=== PATIENT | female | born 1950 | race Caucasian/White ===

== ENCOUNTER 2021-01-13 09:44 | Emergency (ER) | payer MEDICARE, BC, SELFPAY ==
[2021-01-13 09:45] VITALS: BP 151/86; PULSE 71; RESP 16; TEMP 36.7; O2SAT 97; BMI 29.0
--- NOTE | 2021-01-13 10:10 | EKG12_ITS ---
Test Reason : SOB Blood Pressure : / mmHG Vent. Rate : 061 BPM Atrial Rate : 061 BPM P-R Int : 178 ms QRS Dur : 092 ms QT Int : 452 ms P-R-T Axes : 021 014 -14 degrees QTc Int : 455 ms Normal sinus rhythm Nonspecific T wave abnormality Abnormal ECG Confirmed by PETERSON SMITH, AYAZ ([id number]), newspaper or periodical editor LASHELL SAMPSON ([id number]) on 01/16/2021 10:03:35 AM Referred By: GISSELLE Confirmed By:AYAZ WINKLER MD
--- NOTE | 2021-01-13 10:10 | EDS_ITS ---
HPI History of Present Illness Chief Complaint: Abd Pain Informant: patient Onset/Context/Timing Onset: Today Context: Gradual Onset Current Severity: Mild Maximum Severity: Severe Narrative Narrative: Patient present secondary to abdominal pain. She states that approximately 30 minutes ago she developed pain across her mid upper abdomen mary t radiated around both sides. She felt like her right upper quadrant was swollen. She reported feeling very hot and short of breath. She was nauseated but did not vomit. On arrival to the emergency room symptoms seem to have improved. Patient denies any prior similar episodes. She denies any prior abdominal surgeries. [facility] Medical History Cardiomyopathy Hypertension Hypothyroidism Home Medications Unobtainable 01/13/21 [History Last Taken Unknown] Allergy/AdvReac Type Severity Reaction Status Date / Time No Known Allergies Allergy Verified 01/13/21 09:47 Social History Smoking Status: Current every day smoker tobacco type: e-cigarettes ROS ROS ED Constitutional Constitutional ED: Denies chills or fever(s) Eyes Eyes: Denies change in vision ENT ENT ED: Denies sore throat Cardiovascular Cardiovascular: Denies chest pain Respiratory/Chest Respiratory/Chest: Denies cough or dyspnea Gastrointestinal Gastrointestinal: Reports abdominal pain and nausea; Denies diarrhea or vomiting Genitourinary Genitourinary ED: Denies dysuria Musculoskeletal Musculoskeletal: Denies back pain Integumentary Denies rash Neurologic Neurologic: Denies headache(s) or weakness Allergic/Immunologic Allergic/Immunologic ED: Denies urticaria EXAM Physical Exam Const Vital Signs: 01/13/21 09:45 01/13/21 12:41 Temperature 98.1 F Temperature Source Temporal Pulse Rate 71 52 L Respiratory Rate 16 12 Blood Pressure 151/86 H 155/85 H Blood Pressure Mean 107 108 Pulse Ox 97 97 Oxygen Delivery Method Room Air Room Air Positive well nourished and well developed General Appearance ED: well developed HEENT Reports normocephalic and head/scalp atraumatic Eyes PERRL and EOMs intact bilaterally Neck supple Chest Wall inspection of chest normal and palpation of chest normal Resp normal respiratory effort and clear to auscultation bilaterally Cardio regular rate and regular rhythm GI Auscultation: hypoactive bowel sounds Palpation: soft and tender May's sign and other (Mild diffuse tenderness to palpation.); Negative for guarding or rebound tenderness present Extremity normal to inspection Neuro oriented x3 and no sensory deficits noted Sensorium / Orientation: alert Motor Exam: strength 5/5 throughout Psych mental status grossly normal Skin no rashes or lesions noted MDM MDM MDM Narrative Medical decision making narrative: Patient states pain significantly improved with time examined did not require anything for pain while here. Lab work, CT flank, EKG obtained. Lab Data Attestation: I reviewed the patient's lab results. Labs: Laboratory Results - last 24 hr 01/13/21 01/13/21 01/13/21 10:55 10:55 12:08 WBC 6.9 RBC 4.57 Hgb 13.6 Hct 39.6 MCV 86.7 MCH 29.8 MCHC 34.3 RDW Std Deviation 39.1 RDW Coeff of Arcenio 12.4 Plt Count 239 MPV 10.9 Immature Gran % (Auto) 0.300 Neut % (Auto) 60.3 Lymph % (Auto) 23.3 [place] % (Auto) 8.2 Eos % (Auto) 6.7 H Baso % (Auto) 1.2 H Absolute Neuts (auto) 4.2 Absolute Lymphs (auto) 1.61 Nucleated RBC % 0 Sodium 137 Potassium 4.1 Chloride 104 Carbon Dioxide 26.0 Anion Gap 7 BUN 9 Creatinine 0.65 Estim Creat Clear Calc 48.30 Est GFR (MDRD) Af Amer 116 Est GFR (MDRD) Non-Af 96 BUN/Creatinine Ratio 13.9 Glucose 116 H Calcium 9.0 Total Bilirubin 0.30 Direct Bilirubin 0.08 AST 27 ALT 26 Alkaline Phosphatase 115 Total Protein 7.7 Albumin 3.7 Globulin 4.0 Lipase 247 Urine Color Straw Urine Clarity Clear Urine pH 6.5 Ur Specific [place] 1.010 Urine Protein Negative Urine Glucose (UA) Normal Urine Ketones Negative Urine Occult Blood Negative Urine Nitrite Negative Urine Bilirubin Negative Urine Urobilinogen Normal Ur Leukocyte Esterase 25 H Urine RBC 0 SEEN Urine WBC 0-5 SEEN Ur Squamous Epith Cells 0-5 SEEN Urine Bacteria RARE Urine Mucus 0 SEEN Radiography Diagnostic Testing: Radiology Impression Abdomen/Pelvis CT 01/13/21 10:10 IMPRESSION: Mild degree of right hydronephrosis and right hydroureter. I suspect a 2 mm calculus in the distal portion of the right ureter. Electronically Signed: Luis Fernando Joyner MD at 11:29 EDT , Service support , EKG Initial EKG: Attestation: I personally reviewed and interpreted this EKG as follows: Interpretation: Sinus Rhythm (Sinus at [address] change.) Treatment and Re-Evaluation Comments:: On repeat evaluation patient resting comfortably. CT scan reveals mild right hydro with a 2 mm distal stone. Urinalysis reveals no sign of acute infection. Test results discussed with patient and family at bedside. Will be referred to urology for follow-up as needed. I suspect she will pass the stone without difficulty. Discharge Plan Triage Chief Complaint: Abd Pain ED Provider: Jovana Campbell Dx/Rx/DC Orders Clinical Impression: Kidney stone Instructions: ED Kidney Stone w/ Colic Prescriptions: No Action Unobtainable RF: 0 Referrals: GEETA VIEIRA [Other] Archie Johns MD [STAFF PHYSICIAN] - As Needed
--- NOTE | 2021-01-13 10:10 | CT_ITS ---
STUDY: CT ABDOMEN AND PELVIS WITHOUT CONTRAST REASON FOR EXAM: Female, 70 years old. Diffuse abdominal pain with radiation to the lower back. RADIATION DOSAGE (If Supplied By Facility): CTDIvol = ( 15.96 ) mGy, DLP = ( 805.31 ) mGycm TECHNIQUE: Transaxial images were obtained from the dome of the diaphragm to the symphysis pubis without oral contrast, and without intravenous contrast. Sagittal and coronal images were reconstructed. Individualized dose optimization techniques were used for this CT. COMPARISON: None. FINDINGS: Minimal increased markings at the lung bases suggestive of mild linear scarring and/or atelectasis. Coronary artery calcification. Normal liver. Normal gallbladder and extrahepatic biliary system. Normal spleen. Normal pancreas. Normal bilateral adrenal glands. There is a mild degree of right hydronephrosis and right hydroureter down to its distal portion. A suspected 2 mm calculus in the distal portion of the right ureter. Normal left kidney. There is a small hiatal hernia. Normal small intestine. Normal colon. The appendix is visualized and appears normal. There is diffuse atherosclerotic calcification of the abdominal aorta, without a demonstrated aneurysm. Normal inferior vena cava. Normal retroperitoneum. Normal urinary bladder. There is a small umbilical hernia containing fat. Small bilateral inguinal hernias containing fat. There are degenerative changes of the visualized lumbar spine. CT/Abdomen/Pelvis without Cont IMPRESSION: Mild degree of right hydronephrosis and right hydroureter. I suspect a 2 mm calculus in the distal portion of the right ureter. Electronically Signed: Luis Fernando Joyner MD at 11:29 EDT , Service support ,
[2021-01-13 11:04] LABS: Absolute Lymphocyte Count 1.61 X10^3/uL (0.83-4.51); Absolute Neutrophil Count 4.2 X10^3/uL (2.0-7.7); Basophil# 0.08 X10^3/uL; Basophil% 1.2 % (0-1); Eosinophil# 0.46 X10^3/uL; Eosinophils% 6.7 % (0-5); Hematocrit 39.6 % (37-47); Hemoglobin 13.6 g/dL (12.0-15.0); Lymphocyte # 1.61 X10^3/ul (0.83-4.51); Lymphocyte % 23.3 % (19-41); Mean Corp Hgb Conc 34.3 g/dL (32-36); Mean Corpuscular Hgb 29.8 pg (27.0-32.0); Mean Corpuscular Volume 86.7 fL (81-99); Mean Platelet Vol. 10.9 fl (6.2-12.0); Monocyte# 0.57 X10^3/uL; Monocyte% 8.2 % (0-10); NRBC Flagged by Analyzer 0 % (0-5); Neutrophil # 4.17 X10^3/uL (2.7-7.7); Neutrophil % 60.3 % (47-70); Platelet Count 239 K/mm3 (150-450); RBC Distribution Width CV 12.4 % (11.6-14.6); RBC Distribution Width SD 39.1 fl (35.1-43.9); Red Blood Count 4.57 M/mm3 (4.2-5.4); White Blood Count 6.9 K/mm3 (4.4-11.0)
[2021-01-13 11:21] LABS: AST(SGOT) 27 U/L (15-37); Alanine Aminotransfer ALT/SGPT 26 U/L (13-56); Albumin, Serum 3.7 g/dL (3.2-5.0); Alkaline Phosphatase 115 U/L (45-117); Anion Gap 7 (5-15); BUN 9 mg/dL (7-18); BUN/Creat Ratio 13.9 RATIO (10-20); Bilirubin, Direct 0.08 mg/dL (0.00-0.30); Chloride 104 mmol/L (98-107); Creatinine, Serum 0.65 mg/dL (0.55-1.02); EST Glomerular Filtration Rate 96 mL/min (>60); Est Glom Filt Rate - Afr Amer 116 mL/min (>60); Glucose 116 mg/dL (74-106); Lipase 247 U/L (73-393); Potassium 4.1 mmol/L (3.5-5.1); Protein, Total 7.7 g/dL (6.4-8.2); Sodium Level 137 mmol/L (136-145)
[2021-01-13 12:13] LABS: Mucous, Urine 0 SEEN /hpf (<or=2+); Red Blood Cells-Urine 0 SEEN /hpf (0-5)
[2021-01-13 12:15] LABS: Color, Urine Straw (Yellow); Glucose, Dipstick Normal (Normal); Ketone-Dipstick Negative (Negative); Leukocyte Esterase-Dipstick 25 /ul (Negative); Nitrite-Dipstick Negative (Negative); Occult Blood-Urine Negative /ul (Negative); Protein-Dipstick Negative (Negative); Urine Bilirubin Dipstick Negative (Negative); Urine Clarity Clear (Clear); Urine Urobilinogen Normal (Normal); Urine pH 6.5 (5.0 - 8.0)
[2021-01-13 12:26] LABS: Bacteria RARE /hpf (None Seen); Squamous Epithelial Cells - UA 0-5 SEEN /hpf (5-10); White Blood Cells 0-5 SEEN /hpf (0-5)
[2021-01-13 12:41] VITALS: BP 155/85; PULSE 52; RESP 12; O2SAT 97
== END 2021-01-13 12:56 | disposition home or self-care (01) ==
LOC: ED 11:58
PROVIDERS: Emergency Provider Emergency Medicine
DX: N20.0 Calculus of kidney (principal)
CPT/HCPCS: 74176; 80048; 80076; 81001; 83690; 85025; 93005; 99284; A4216

== ENCOUNTER 2021-10-23 13:01 | Emergency (ER) | payer MEDICARE, BC, SELFPAY ==
[2021-10-23 13:03] VITALS: BP 159/90; PULSE 73; RESP 16; TEMP 36.3; O2SAT 100; BMI 32.5
--- NOTE | 2021-10-23 13:41 | RAD_ITS ---
STUDY: X-RAY - LEFT FOOT CLINICAL: Female, 70 years old. Pain/injury TECHNIQUE: 3 view(s) of the foot. COMPARISON: None. FINDINGS: Normal talus, calcaneus, and tarsal bones. Normal visualized subtalar, talonavicular, calcaneocuboid, tarsal and tarsometatarsal articulations. Normal metatarsi. Normal metatarsophalangeal joint of the great toe. Normal tibial and fibular sesamoid bones. Normal interphalangeal joint of the great toe. Normal phalanges of the great toe. Normal second through fifth metatarsophalangeal joints. Normal interphalangeal joints and phalanges of the lesser toes. The soft tissue structures are unremarkable. RAD/Foot min 3 Views IMPRESSION: Normal x-ray examination of the foot. Electronically Signed: Luis Fernando Joyner MD at 14:17 EDT ,
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
[2021-10-23] MEDS: Ibuprofen 600 MG Tablet PO (13:49)
--- NOTE | 2021-10-23 13:54 | RAD_ITS ---
STUDY: X-RAY - LEFT ANKLE REASON FOR EXAM: Female, 70 years old. Pain and swelling following injury. TECHNIQUE: 3 view(s) of the ankle. COMPARISON: None. FINDINGS: Normal visualized distal tibia and fibula. Normal medial and lateral malleoli. Normal tibiotalar articulation and ankle mortise. Normal visualized talus and calcaneus. The visualized subtalar, talonavicular, calcaneocuboid and tarsal articulations are normal. Diffuse soft tissue swelling. RAD/Ankle min 3 Views IMPRESSION: Diffuse soft tissue swelling. Electronically Signed: Luis Fernando Joyner MD at 14:17 EDT ,
== END 2021-10-23 14:55 | disposition home or self-care (01) ==
PROVIDERS: Emergency Provider Emergency Medicine; Visit Provider Emergency Medicine
DX: S93.402A Sprain of unspecified ligament of left ankle, initial encounter (principal); S46.812A Strain of other muscles, fascia and tendons at shoulder and upper arm level, left arm, initial encounter; F17.290 Nicotine dependence, other tobacco product, uncomplicated; V89.2XXA Person injured in unspecified motor-vehicle accident, traffic, initial encounter
CPT/HCPCS: 73610; 73630; 99283